=== PATIENT | female | born 1935 | race Caucasian/White ===

== ENCOUNTER 2016-08-09 16:24 | Emergency (ER) | payer MEDICARE, OTHER ==
[~2016-08-09] VITALS: Ht 154.9 cm; Wt 80.0 kg
[~2016-08-09 16:24] MED LIST: ADVIL
[2016-08-09 19:01] LABS: CHLORIDE 102 mEq/L (98-107)
[2016-08-09 19:02] LABS: BASOPHILS % 0.6 % (0.0-2.0); EOSINOPHILS % 2.6 % (0.0-5.0); HEMATOCRIT. 31.8 % (36.0-48.0); HEMOGLOBIN. 10.3 g/dL (12.0-16.0); LYMPHOCYTES % 25.3 % (20.0-50.0); MEAN CORPUSCULAR HEMOGLOBIN 25.7 pg (28.0-32.0); MEAN CORPUSCULAR VOLUME 79.1 fL (81.0-99.0); MEAN PLATELET VOLUME 7.7 fl (7.4-10.4); MONOCYTES % 7.9 % (2.0-8.0); NEUTROPHILS % 63.6 % (40.0-76.0); PLATELET 287 x1000/uL (130-400); RED BLOOD CELL COUNT 4.02 mill/uL (4.2-5.4)
[2016-08-09 19:03] LABS: INR 0.9; PARTIAL THROMBOPLASTIN TIME 24.9 sec (24.0-34.0); PROTHROMBIN TIME 9.6 sec
[2016-08-09 19:05] LABS: CARBON DIOXIDE 29 mEq/L (21-32)
[2016-08-09 19:09] LABS: PHOSPHORUS 4.1 mg/dL (2.5-4.9)
[2016-08-09 19:10] LABS: CREATINE KINASE 84 IU/L (26-192)
[2016-08-09 21:39] VITALS: BP 139/71
== END 2016-08-09 21:39 | disposition home or self-care (01) ==
LOC: ER 19:05
DX: S80.12XA Contusion of left lower leg, initial encounter (principal); Z88.5 Allergy status to narcotic agent; W19.XXXA Unspecified fall, initial encounter; Y93.89 Activity, other specified; Y92.89 Other specified places as the place of occurrence of the external cause; Y99.8 Other external cause status
CPT/HCPCS: 36415; 70450; 80048; 82550; 83735; 84100; 85025; 85610; 85730; 86850; 86900; 86901; 93005; 99285; Z7610

== ENCOUNTER 2017-05-28 15:05 | Emergency (ER) | payer MEDICARE, OTHER ==
[~2017-05-28] VITALS: Ht 152.4 cm; Wt 59.0 kg
[2017-05-28] MEDS ORDERED: IBUPROFEN 600MG TABLET PO ONE (17:00)
[2017-05-28 18:08] VITALS: BP 163/72
== END 2017-05-28 18:00 | disposition home or self-care (01) ==
LOC: ER 16:37
DX: M25.561 Pain in right knee (principal); M19.90 Unspecified osteoarthritis, unspecified site; I48.91 Unspecified atrial fibrillation; Z88.5 Allergy status to narcotic agent
CPT/HCPCS: 73562; 99284

== ENCOUNTER 2018-07-11 20:57 | Emergency (ER) | payer MEDICARE, OTHER ==
[~2018-07-11] VITALS: Ht 152.4 cm; Wt 57.0 kg
[2018-07-12] MEDS ORDERED: LIDOCAINE HCL/PF 1% 10 MG/ML 5ML VIAL IJ ONE (00:30)
[2018-07-12] MEDS ORDERED: TETANUS, DIPHTHERIA, PERTUSSIS VAC/PF 0.5ML (>7YR OLD) IM ONE (00:30)
[2018-07-12] MEDS ORDERED: BACITRACIN ZINC OINT UDPKT TOP ONE (00:30)
[2018-07-12 03:40] VITALS: BP 149/74
== END 2018-07-12 03:50 | disposition home or self-care (01) ==
LOC: ER 20:57
DX: S51.012A Laceration without foreign body of left elbow, initial encounter (principal); I48.91 Unspecified atrial fibrillation; Z85.038 Personal history of other malignant neoplasm of large intestine; Z90.49 Acquired absence of other specified parts of digestive tract; Z98.890 Other specified postprocedural states; Z88.6 Allergy status to analgesic agent; W01.0XXA Fall on same level from slipping, tripping and stumbling without subsequent striking against object, initial encounter; Y93.89 Activity, other specified; Y92.89 Other specified places as the place of occurrence of the external cause; Y99.8 Other external cause status
CPT/HCPCS: 12002; 90471; 90715; 99283; J3490; A4565

== ENCOUNTER 2018-07-23 16:27 | Emergency (ER) | payer MEDICARE, OTHER ==
[~2018-07-23] VITALS: Ht 152.4 cm; Wt 60.0 kg
[2018-07-23 19:19] VITALS: BP 130/66
== END 2018-07-23 19:19 | disposition home or self-care (01) ==
LOC: ER 16:38
DX: Z48.00 Encounter for change or removal of nonsurgical wound dressing (principal)
CPT/HCPCS: 99281

== ENCOUNTER → 2020-06-11 | Outpatient (CLI) | payer MEDICARE, OTHER | END | disposition home or self-care (01) | LOC: RAD 14:48 | PROVIDERS: ATTEND Specialist | DX: M16.0 Bilateral primary osteoarthritis of hip (principal); M25.559 Pain in unspecified hip | CPT/HCPCS: 73521 ==

== ENCOUNTER 2020-06-22 14:06 | Emergency (ER) | payer MEDICARE, MEDICAID ==
[~2020-06-22] VITALS: Ht 152.4 cm; Wt 53.0 kg
[2020-06-22] MEDS ORDERED: MORPHINE SULFATE 4 MG/ML CPJ (NOT FOR IM USE) IV PRN (15:15)
[2020-06-22] MEDS ORDERED: KETOROLAC 15MG/ML VIAL IM ONE (15:30)
[2020-06-22] MEDS ORDERED: ACETAMINOPHEN 325MG TABLET PO ONE (15:30)
[2020-06-22 16:12] LABS: BASOPHILS % 0.4 % (0.0-2.0); EOSINOPHILS % 0.4 % (0.0-5.0); HEMATOCRIT. 25.2 % (36.0-48.0); HEMOGLOBIN. 7.8 g/dL (12.0-16.0); LYMPHOCYTES % 9.4 % (20.0-50.0); MEAN CORPUSCULAR HEMOGLOBIN 22.2 pg (28.0-32.0); MEAN CORPUSCULAR VOLUME 71.8 fL (81.0-99.0); MEAN PLATELET VOLUME 7.1 fl (7.4-10.4); MONOCYTES % 6.6 % (2.0-8.0); NEUTROPHILS % 83.2 % (40.0-76.0); PLATELET 345 x1000/uL (130-400); RED BLOOD CELL COUNT 3.51 mill/uL (4.2-5.4); RED CELL DISTRIBUTION WIDTH 18.2 % (11.6-14.6)
[2020-06-22 16:16] LABS: CHLORIDE 106 mEq/L (98-107)
[2020-06-22 16:20] LABS: PARTIAL THROMBOPLASTIN TIME 25.4 sec (23.4-31.0); PROTHROMBIN TIME 10.3 sec (9.6-11.0)
[2020-06-22 23:30] VITALS: BP 141/65
[2020-06-22] MEDS ORDERED: HYDR-4346 MT ×2 (23:37→23:40)
== END 2020-06-23 | disposition left against medical advice (07) ==
LOC: ER 14:18
DX: M25.551 Pain in right hip (principal); I48.91 Unspecified atrial fibrillation; Z85.6 Personal history of leukemia; Z87.19 Personal history of other diseases of the digestive system; Z98.890 Other specified postprocedural states; Z90.49 Acquired absence of other specified parts of digestive tract
CPT/HCPCS: 36415; 80048; 85025; 85610; 85730; 93005; 96372; 99285; J1885

== ENCOUNTER 2021-12-12 06:44 | Emergency (ER) | payer MEDICARE, OTHER ==
[~2021-12-12] VITALS: Ht 165.1 cm; Wt 49.0 kg
[~2021-12-12 06:44] MED LIST changes: +HYDR-4346 MT
[2021-12-12] MEDS ORDERED: LIDOCAINE HCL/PF 1% 10 MG/ML 5ML VIAL INFIL ONE (07:45)
[2021-12-12 10:37] VITALS: BP 147/79
== END 2021-12-12 11:11 | disposition home or self-care (01) ==
LOC: ER 06:44
DX: S01.81XA Laceration without foreign body of other part of head, initial encounter (principal); I48.91 Unspecified atrial fibrillation; Z98.890 Other specified postprocedural states; Z90.49 Acquired absence of other specified parts of digestive tract; W01.0XXA Fall on same level from slipping, tripping and stumbling without subsequent striking against object, initial encounter; Y93.01 Activity, walking, marching and hiking; Y92.89 Other specified places as the place of occurrence of the external cause; Y99.8 Other external cause status
CPT/HCPCS: 70450; 93005; 99284; J3490

== ENCOUNTER 2021-12-22 12:27 | Emergency (ER) | payer MEDICARE, OTHER ==
[~2021-12-22] VITALS: Ht 165.1 cm; Wt 60.0 kg
[2021-12-22 12:47] VITALS: BP 156/70
== END 2021-12-22 14:10 | disposition home or self-care (01) ==
LOC: ER 12:27
DX: Z48.02 Encounter for removal of sutures (principal)
CPT/HCPCS: 99281